=== PATIENT | male | born 1935 | race Caucasian/White ===

== ENCOUNTER 2017-03-25 13:01 | Emergency (ER) | payer MEDICARE ==
[2017-03-25 13:22] VITALS: RESP 18; TEMP 97.8
--- NOTE | 2017-03-25 13:32 | ED PDOC ---
Lower Extremity Pain/Injury Time Seen by Provider: 03/25/17 13:22 Chief Complaint (Nursing): Lower Extremity Problem/Injury History Per: Patient (Blister back of left calf x 2days. Surrounding erythema. Followed at wound center for venous stasis wound.) Current Symptoms Are (Timing): Still Present Severity: Mild Pain Scale Rating Of: 1 Past Medical History Vital Signs: Last Vital Signs Temp 97.8 F 03/25/17 13:19 Pulse 51 L 03/25/17 13:19 Resp 18 03/25/17 13:19 BP 156/53 H 03/25/17 13:19 Pulse Ox 94 L 03/25/17 13:19 - Medical History Other PMH: Venous stasis - Family History Family History: States: Unknown Family Hx - Home Medications Home Medications: Ambulatory Orders Medication Instructions Recorded Sulfamethoxazole/Trimethoprim 1 tab PO BID #20 tab 03/25/17 [Bactrim DS 800 mg-160 mg] - Allergies Allergies/Adverse Reactions: Allergies Allergy/AdvReac Type Severity Reaction Status Date / Time No Known Allergies Allergy Verified 03/25/17 13:19 Review of Systems Constitutional: Negative for: Fever, Chills Skin: Positive for: Other (Blister left calf) Physical Exam - Physical Exam Appears: Positive for: Non-toxic, No Acute Distress Skin: Positive for: Normal Color Extremity: Positive for: Other (Left distal calf, blister approx 2 cm with surrounding erythema. No purulent drainage) - Laboratory Results Result Diagrams: 03/25/17 13:52 - ECG O2 Sat by Pulse Oximetry: 94 Disposition - Clinical Impression Clinical Impression: Blister - Patient ED Disposition Is Patient to be Admitted: No Counseled Patient/Family Regarding: Studies Performed, Diagnosis, Need For Followup, Rx Given - Disposition Referrals: [facility] [Outside] Disposition: Routine/Home Disposition Time: 14:16 Condition: FAIR Prescriptions: Sulfamethoxazole/Trimethoprim [Bactrim DS 800 mg-160 mg] 1 tab PO BID #20 tab Instructions: Blister (ED) Forms: [employer] (Syriac)
[2017-03-25 13:58] LABS: BASO # 0.1 K/uL (0.0-0.2); BASO % 0.7 % (0.0-2.0); EOS # 0.4 K/uL (0.0-0.7); EOS % 5.2 % (0.0-4.0); HEMATOCRIT 41.7 % (35.0-51.0); LYMPH # 0.9 K/uL (1.0-4.3); MEAN CELL VOLUME 83.3 fl (80.0-94.0); MEAN CORPUSCULAR HEMOGLOBIN 26.7 pg (27.0-31.0); MEAN CORPUSCULAR HGB CONC 32.1 g/dL (33.0-37.0); MEAN PLATELET VOLUME 9.3 fl (7.2-11.7); MONO # 0.6 K/uL (0.0-0.8); MONO % 8.7 % (0.0-10.0); NEUT # 5.3 K/uL (1.8-7.0); NEUT % 72.4 % (50.0-75.0); NRBC % 0.1 % (0.0-0.0); RED CELL DISTRIBUTION WIDTH 15.4 % (11.5-14.5); WHITE BLOOD COUNT 7.3 K/uL (4.8-10.8)
[2017-03-25] MEDS ORDERED: Silver Sulfadiazine 1% CREAM (50 gm) TOP STA (14:22)
[2017-03-25] MEDS ORDERED: Silver Sulfadiazine 1% CREAM (50 gm) ONE (14:41)
--- NOTE | 2017-03-25 14:57 | CP.PCM.CON ---
History of Present Illness - History of Present Illness History of Present Illness: Podiatry Consult Note - Dr. Parada 82 year old male patient PMHx COPD, dementia seen and evaluated in ED for painful blister on left leg. Patient hemodynamically stable and NAD. Patient is a poor historian; HPI obtained from daughter who is present at bedside. Per daughter, unknown when patient developed a blister on the back of his left leg however realized it had been popped today as she saw fluid on his stocking. Patient complaining of pain when pressure is on the back of his leg. Daughter states patient follows up with Dr. Parada in the wound care center and his last appointment was sometime in January. Patient denies N/V/F/D/C/SOB/calf pain. Offers no other pedal complaints at this time. Review of Systems - Review of Systems All systems: reviewed and no additional remarkable complaints except (as per HPI ) Meds Home Medications: Home Medication List Medication Instructions Recorded Confirmed Type Sulfamethoxazole/Trimethoprim 1 tab PO BID #20 tab 03/25/17 Rx [Bactrim DS 800 mg-160 mg] Allergies/Adverse Reactions: Allergies Allergy/AdvReac Type Severity Reaction Status Date / Time No Known Allergies Allergy Verified 03/25/17 13:19 Physical Exam - Constitutional Appears: Well, Non-toxic, No Acute Distress - Extremities Exam Additional comments: VASC: DP pulses palpable 2/4 b/l. PT pulses nonpalpable secondary to edema. CFT <3 seconds to all digits. Temperature gradient warm to warm b/l. No increase in warmth noted to lanced bullae posterior 1/3 left lower leg. +1 perimalleolar edema noted. Hair growth absent. NEURO: Gross sensation diminished bilaterally. DERM: 2 x 2 cm lanced bullae noted to posterior aspect of lower 1/3 left leg - no fluctuance, purulence, drainage, ascending cellulitis noted; no clinical signs of infection noted at this time. Lower 1/3 of leg b/l noted to have erythema along with hemosiderin deposits. ORTHO: Pain on palpation noted to posterior aspect of lower 1/3 left leg. - Neurological Exam Neurological exam: Alert - Psychiatric Exam Psychiatric exam: Normal Affect, Normal Mood Results - Vital Signs Recent Vital Signs: Last Vital Signs Temp 97.8 F 03/25/17 13:19 Pulse 51 L 03/25/17 13:19 Resp 18 03/25/17 13:19 BP 156/53 H 03/25/17 13:19 Pulse Ox 94 L 03/25/17 14:17 - Labs Result Diagrams: 03/25/17 13:52 Labs: Laboratory Results - last 24 hr 03/25/17 03/25/17 13:52 13:52 WBC 7.3 RBC 5.01 Hgb 13.4 Hct 41.7 MCV 83.3 MCH 26.7 L MCHC 32.1 L RDW 15.4 H Plt Count 178 MPV 9.3 Neut % (Auto) 72.4 Lymph % (Auto) 13.0 L Isabella % (Auto) 8.7 Eos % (Auto) 5.2 H Baso % (Auto) 0.7 Neut # 5.3 Lymph # 0.9 L Isabella # 0.6 Eos # 0.4 Baso # 0.1 PT 34.2 H INR 3.0 H Assessment & Plan - Assessment and Plan (Free Text) Assessment: 82 year old male PMHx COPD with 1) left leg painful bullae, non-infected 2) venous stasis dermatitis Plan: Patient seen and evaluated in ED Discussed with attending, Dr. Parada afebrile, WBC 7.3 No clinical signs of infection noted at this time Wound cleansed with sterile saline; Silvadene applied to bullae and dressed with Allevyn pad -Educated patient and daughter on daily dressing changes with application of Silvadene Educated patient that erythema/brown discoloration to lower leg bilateral are venous stasis skin changes Advised patient to come back if he begins to develop signs and symptoms of infection Patient to follow up with Dr. Parada in wound care clinic next week Stable from podiatry standpoint Thank you for the consult, please reconsult podiatry as needed
[2017-03-25 15:04] VITALS: BP 145/65; PULSE 62; O2SAT 98
== END 2017-03-25 14:59 | disposition home or self-care (01) ==
LOC: H.ER 13:01
DX: S80.822A Blister (nonthermal), left lower leg, initial encounter (principal); I87.2 Venous insufficiency (chronic) (peripheral)